=== PATIENT | male | born 1995 | race Caucasian/White ===

== ENCOUNTER 2024-01-09 10:34 | Emergency (ER) | payer OTHER | END 2024-01-09 13:00 | disposition home or self-care (01) | LOC: MW.ED 10:34 | DX: S06.0X0A Concussion without loss of consciousness, initial encounter (principal); Z75.8 Other problems related to medical facilities and other health care; W22.8XXA Striking against or struck by other objects, initial encounter; Y93.89 Activity, other specified; Y99.0 Civilian activity done for income or pay | CPT/HCPCS: 70450; 70450-26; 99282; 99283 ==